=== PATIENT | male | born 1950 ===

== ENCOUNTER 2018-02-19 08:50 | Outpatient (CLI) | payer OTHER ==
[~2018-02-19 08:50] MED LIST: OMEPRAZOLE40 MG PO; ZANTAC300 MG PO
[2018-02-19] MEDS ORDERED: FLONASE16 GM NASAL (09:49)
== END 2018-02-19 09:10 | disposition home or self-care (01) ==
LOC: OFIC 805 08:50
DX: H90.3 Sensorineural hearing loss, bilateral (principal); G47.33 Obstructive sleep apnea (adult) (pediatric); J34.2 Deviated nasal septum; J37.0 Chronic laryngitis; K21.9 Gastro-esophageal reflux disease without esophagitis; J31.0 Chronic rhinitis

== ENCOUNTER → 2020-06-27 | Outpatient (CLI) | payer OTHER ==
[~2020-06-27] MED LIST changes: +FLONASE16 GM NASAL
== END | disposition home or self-care (01) ==
LOC: OFIC 805 12:58
PROVIDERS: ATTEND Otolaryngology Otology & Neurotology
DX: H90.3 Sensorineural hearing loss, bilateral (principal); G47.33 Obstructive sleep apnea (adult) (pediatric); J34.2 Deviated nasal septum; K21.9 Gastro-esophageal reflux disease without esophagitis; J31.0 Chronic rhinitis

== ENCOUNTER 2020-09-07 09:28 | Outpatient (CLI) | payer OTHER | END 2020-09-07 09:36 | disposition home or self-care (01) | LOC: SONOGRAMA 09:28 | PROVIDERS: ATTEND Specialist | DX: M25.552 Pain in left hip (principal); N60.11 Diffuse cystic mastopathy of right breast; N60.12 Diffuse cystic mastopathy of left breast; Z12.31 Encounter for screening mammogram for malignant neoplasm of breast ==

== ENCOUNTER 2021-05-18 11:00 | Outpatient (CLI) | payer OTHER | END 2021-05-18 11:20 | disposition home or self-care (01) | LOC: PPH VACUNA 11:00 | PROVIDERS: ATTEND Emergency Medicine Pediatric Emergency Medicine | DX: Z23 Encounter for immunization (principal) ==

== ENCOUNTER 2021-06-08 08:00 | Outpatient (CLI) | payer OTHER | END 2021-06-08 08:30 | disposition home or self-care (01) | LOC: PPH VACUNA 08:00 | PROVIDERS: ATTEND Emergency Medicine Pediatric Emergency Medicine | DX: Z23 Encounter for immunization (principal) ==